=== PATIENT | female | born 1960 | race Caucasian/White ===

== ENCOUNTER → 2016-12-19 | Outpatient (REF) | payer OTHER | LOC: M LAB REF 17:46 | PROVIDERS: ATTEND Otolaryngology | DX: R59.0 Localized enlarged lymph nodes (principal) ==

== ENCOUNTER 2017-03-27 08:42 | Day surgery (SDC) | payer BC, OTHER ==
[2017-03-27] MEDS ORDERED: LR 1,000 ML IV ×3 (09:00→14:15)
[2017-03-27] MEDS ORDERED: fentaNYL 100 MCG/2 ML INJECTION (J3010) As Ordered ×3 (10:14→12:40)
[2017-03-27] MEDS ORDERED: MIDAZOLAM INJ 2 MG/2 ML VIAL (J2250) As Ordered (10:14)
[2017-03-27 10:36] LABS: BEDSIDE GLUCOSE 107 MG/DL (70-105)
[2017-03-27] MEDS: LIDOCAINE W/EPINEPHRINE 1% 20ML VIAL As Ordered (10:44)
[2017-03-27] MEDS: dexameTHASONE 4 MG/ML 1ML VIAL (J1100) IV (10:50)
[2017-03-27] MEDS: CEFUROXIME INJ 750 MG VIAL (J0697 PER 750MG) As Ordered (10:50)
[2017-03-27] MEDS ORDERED: dexameTHASONE 4 MG/ML 1ML VIAL (J1100) As Ordered ×2 (11:59)
[2017-03-27] MEDS ORDERED: ONDANSETRON 4MG/2ML VIAL (J2405) As Ordered ×2 (11:59→13:38)
[2017-03-27] MEDS ORDERED: PROPOFOL 200 MG/20 ML VIAL As Ordered (11:59)
[2017-03-27] MEDS ORDERED: LIDOCAINE 2% INJ 100 MG/5 ML SYRINGE As Ordered (11:59)
[2017-03-27] MEDS ORDERED: BACITRACIN OINT 30GM As Ordered (12:59)
[2017-03-27] MEDS: BACITRACIN OINT 30GM As Ordered (13:00)
[2017-03-27] MEDS: ONDANSETRON 4MG/2ML VIAL (J2405) IV ×2 (13:40→14:55)
[2017-03-27 13:49] LABS: BEDSIDE GLUCOSE 147 MG/DL (70-105)
[2017-03-27] MEDS: METOCLOPRAMIDE INJ 10MG/2ML VIAL (J2765) IV (14:00)
[2017-03-27] MEDS ORDERED: METOCLOPRAMIDE INJ 10MG/2ML VIAL (J2765) As Ordered (14:01)
[2017-03-27] MEDS ORDERED: HYDROmorphone HCL 1 MG/ML SYRINGE (J1170) IV (14:15)
[2017-03-27] MEDS ORDERED: fentaNYL 100 MCG/2 ML INJECTION (J3010) IV (14:15)
[2017-03-27] MEDS: PERCOCET 5MG/325MG TAB PO (14:45)
[2017-03-27] MEDS ORDERED: ONDANSETRON 4MG/2ML VIAL (J2405) IV (15:15)
== END 2017-03-27 17:17 | disposition home or self-care (01) ==
LOC: M SDC 08:42
DX: D11.0 Benign neoplasm of parotid gland (principal); I10 Essential (primary) hypertension; E11.40 Type 2 diabetes mellitus with diabetic neuropathy, unspecified; K21.9 Gastro-esophageal reflux disease without esophagitis; G43.A0 Cyclical vomiting, in migraine, not intractable; L30.9 Dermatitis, unspecified; G44.009 Cluster headache syndrome, unspecified, not intractable; F12.90 Cannabis use, unspecified, uncomplicated; E78.5 Hyperlipidemia, unspecified; I83.90 Asymptomatic varicose veins of unspecified lower extremity; B07.0 Plantar wart; F17.290 Nicotine dependence, other tobacco product, uncomplicated; E04.1 Nontoxic single thyroid nodule; Z79.899 Other long term (current) drug therapy; Z79.84 Long term (current) use of oral hypoglycemic drugs; Z98.51 Tubal ligation status; Z78.0 Asymptomatic menopausal state
CPT/HCPCS: 42415

== ENCOUNTER → 2018-03-25 | Outpatient (REF) | payer OTHER ==
[~2018-03-25] MED LIST: AMIT10TA; ANTICAP6 PO; CALC1TAB40 PO; LISI10TA4; METF500T13; NICO14DI24; OMEP20CA3; OPC PO; PRAV40TA2; PROBCAP4 PO; TRIA37.53 PO; WOMETAB2 PO
[2018-03-25 15:44] LABS: FOLATE > 24.0 NG/ML (>5.4); FREE T4 0.93 NG/DL (0.76-1.46); RHEUMATOID FACTOR QUANT < 10.0 IU/ML (<15.0); THYROID STIMULATING HORMONE 0.764 uIU/ML (0.358-3.740); TOTAL PROTEIN 7.4 GM/DL (6.4-8.2)
[2018-03-27 13:25] LABS: ALBUMIN 4.39 GM/DL (3.29-5.55); ALBUMIN % 59.3 % (55.8-66.1); ALPHA-1-GLOBULIN % 4.7 % (2.9-4.9); ALPHA-1-GLOBULINS 0.35 GM/DL (0.17-0.41); ALPHA-2-GLOBULINS 0.88 GM/DL (0.42-0.99); ALPHA-2-GLOBULINS % 11.9 % (7.1-11.8); BETA-1-GLOBULINS 0.47 GM/DL (0.28-0.60); BETA-1-GLOBULINS % 6.4 % (4.7-7.2); BETA-2-GLOBULINS 0.43 GM/DL (0.19-0.55); BETA-2-GLOBULINS % 5.8 % (3.2-6.5); GAMMA GLOBULIN % 11.9 % (11.1-18.8); GAMMA GLOBULINS 0.88 GM/DL (0.65-1.58)
[2018-03-27 14:44] LABS: ANTINUCLEAR ANTIBODIES DIRECT Negative (Negative)
[2018-03-28 08:38] LABS: VITAMIN B12 LEVEL 821 PG/ML (232-1245)
[2018-03-29 15:32] LABS: VITAMIN B1 LEVEL WHOLE BLOOD 176.2 nmol/L (66.5-200.0)
== END ==
LOC: M LABNEURO 13:27
PROVIDERS: ATTEND Psychiatry & Neurology Neurology
DX: G56.00 Carpal tunnel syndrome, unspecified upper limb (principal)

== ENCOUNTER → 2021-04-10 | Outpatient (CLI) | payer BC, OTHER ==
[~2021-04-10] MED LIST changes: -AMIT10TA; +AMIT10TA7; +DEXA4TA; +GABA-1171 PO; +LISI10TA22; -LISI10TA4; +MEMA10TA19 PO; +MEMA1TAB3 PO; +OMEP1CAP73; -OMEP20CA3; +ONDA-83 PO; +OXYC-517 PO; +OXYC1SOL3 PO; +SERT25TA21; +TRAZ-252 PO
== END ==
LOC: M ONCR 11:40
PROVIDERS: ATTEND General Practice
DX: C34.32 Malignant neoplasm of lower lobe, left bronchus or lung (principal); C79.31 Secondary malignant neoplasm of brain; R51.9 Headache, unspecified; Z79.84 Long term (current) use of oral hypoglycemic drugs; Z79.899 Other long term (current) drug therapy; Z87.891 Personal history of nicotine dependence

== ENCOUNTER → 2021-04-20 | Outpatient (CLI) | payer BC, OTHER ==
[~2021-04-20] MED LIST changes: +DEXA4TA PO; +LIDOCAINE 1% MDV 20ML VIAL As Ordered ONE; +MIDAZOLAM INJ 2MG/2ML VIAL (J2250 PER 1MG) As Ordered ONE; +MORP1SOL PO; +MORP1SOL4 PO; +NS 1,000 ML IV SCH; +TRAZ-257 PO; +ceFAZolin 2 GM/D5W 50 ML IV BAG (J0690 PER 500MG) As Ordered ONE; +ceFAZolin SOD 2 GM in IV 1 EA IV ONE; +diphenhydrAMINE 50MG/ML VIAL (J1200) As Ordered ONE; +fentaNYL 100 MCG/2 ML INJECTION As Ordered ONE
[2021-04-20 16:45] VITALS: BP 125/68
== END ==
LOC: M IRPRO 13:25
PROVIDERS: ATTEND Specialist
DX: C34.90 Malignant neoplasm of unspecified part of unspecified bronchus or lung (principal); Z79.84 Long term (current) use of oral hypoglycemic drugs; Z79.899 Other long term (current) drug therapy
CPT/HCPCS: 36561; 99152; 99153; C1769; C1788; C1894; J0690; J1642; J1644; J2250; J3010

== ENCOUNTER 2021-04-25 09:30 | Outpatient (RCR) | payer BC, OTHER ==
[~2021-04-25 09:30] MED LIST changes: -LIDOCAINE 1% MDV 20ML VIAL As Ordered ONE; -MIDAZOLAM INJ 2MG/2ML VIAL (J2250 PER 1MG) As Ordered ONE; -NS 1,000 ML IV SCH; -ceFAZolin 2 GM/D5W 50 ML IV BAG (J0690 PER 500MG) As Ordered ONE; -ceFAZolin SOD 2 GM in IV 1 EA IV ONE; -diphenhydrAMINE 50MG/ML VIAL (J1200) As Ordered ONE; -fentaNYL 100 MCG/2 ML INJECTION As Ordered ONE
== END 2021-05-01 ==
LOC: M ONCR 09:30
PROVIDERS: ATTEND General Practice
DX: C79.31 Secondary malignant neoplasm of brain (principal)

== ENCOUNTER 2021-05-06 11:26 | Inpatient (IN) | payer BC, OTHER ==
[2021-05-06] VITALS (20 sets, daily range): BP systolic 78–133; BP diastolic 42–83
[~2021-05-06 11:26] MED LIST changes: -LISI10TA22; +LISI10TA22 PO; -PRAV40TA2; +PRAV40TA2 PO; -SERT25TA21; +SERT25TA21 PO
[2021-05-06] MEDS ORDERED: VASOPRESSIN INJ 20 UNITS/ML VIAL As Ordered ONE (14:22)
[2021-05-06] MEDS ORDERED: NS 2,000 ML IV ONE (14:25)
[2021-05-06] MEDS ORDERED: NOREPINEPHRINE BITARTRATE 8 MG in D5W 492 ML IV SCH ×2 (14:25→14:30)
[2021-05-06] MEDS ORDERED: NS 1,000 ML IV ONE ×2 (14:30→14:55)
[2021-05-06] MEDS ORDERED: HYDROCORTISONE 100 MG/2 ML VIAL (J1720 PER 1) IV SCH (15:00)
[2021-05-06] MEDS ORDERED: CALC500C16 PO (15:27)
[2021-05-06] MEDS ORDERED: PROBCAP14 PO (15:28)
[2021-05-06] MEDS ORDERED: METF10004 PO (15:29)
[2021-05-06] MEDS ORDERED: OMEP40CA4 PO (15:30)
[2021-05-06] MEDS ORDERED: VITA100066 PO (15:33)
[2021-05-06] MEDS ORDERED: MED NOTE (15:37)
[2021-05-06] MEDS ORDERED: HOME MED LIST COMPLETE! XX SCH (15:40)
[2021-05-06] MEDS ORDERED: ACETAMINOPHEN TAB 650MG DOSE (2X325MG) PO PRN (16:50)
[2021-05-06] MEDS ORDERED: ACETAMINOPHEN 650 MG SUPP PR PRN (16:50)
[2021-05-06] MEDS ORDERED: ONDANSETRON 4MG/2ML VIAL IV PRN (16:50)
[2021-05-06] MEDS ORDERED: LORazepam 2 MG/ML VIAL IV PRN (16:50)
[2021-05-06] MEDS ORDERED: MORPHINE 4 MG/ML 1ML VIAL/SYRINGE (J2270) IV PRN (16:50)
[2021-05-06] MEDS ORDERED: LORazepam 2 MG/ML VIAL As Ordered ONE (17:26)
[2021-05-06] MEDS ORDERED: PIPERACILLIN/TAZOBACTAM SOD 3.375 GM in D5W MINI-BAG PLUS 50 ML IV SCH (20:00)
== END 2021-05-06 18:37 | disposition expired | DRG 862 ==
LOC: M ICU 13:53
PROVIDERS: ADMIT General Practice; ATTEND General Practice
DX: Z51.5 Encounter for palliative care (principal); J96.01 Acute respiratory failure with hypoxia; R65.21 Severe sepsis with septic shock; A41.9 Sepsis, unspecified organism; G93.41 Metabolic encephalopathy; N17.9 Acute kidney failure, unspecified; C79.31 Secondary malignant neoplasm of brain; N13.30 Unspecified hydronephrosis; E11.9 Type 2 diabetes mellitus without complications; E78.5 Hyperlipidemia, unspecified; K21.9 Gastro-esophageal reflux disease without esophagitis; N39.0 Urinary tract infection, site not specified; Z66 Do not resuscitate; C34.30 Malignant neoplasm of lower lobe, unspecified bronchus or lung; F32.A Depression, unspecified; Z92.3 Personal history of irradiation; Z79.899 Other long term (current) drug therapy